=== PATIENT | male | born 1995 | race Caucasian/White ===

== ENCOUNTER 2020-03-27 12:47 | Emergency (ER) | payer MEDICAID ==
[~2020-03-27] VITALS: Ht 167.6 cm; Wt 65.0 kg
[2020-03-27] MEDS ORDERED: IBUPROFEN 600MG TABLET PO ONE (13:00)
[2020-03-27] MEDS ORDERED: IBUP-2029 MT (13:51)
[2020-03-27 14:29] VITALS: BP 131/75
== END 2020-03-27 14:30 | disposition home or self-care (01) ==
LOC: ER 12:47
DX: S49.82XA Other specified injuries of left shoulder and upper arm, initial encounter (principal); W01.0XXA Fall on same level from slipping, tripping and stumbling without subsequent striking against object, initial encounter; Y93.51 Activity, roller skating (inline) and skateboarding; Y92.89 Other specified places as the place of occurrence of the external cause
CPT/HCPCS: 73030; 99283; A4565

== ENCOUNTER 2021-04-28 15:16 | Emergency (ER) | payer MEDICAID ==
[~2021-04-28] VITALS: Ht 165.1 cm; Wt 58.0 kg
[~2021-04-28 15:16] MED LIST: IBUP-2029 MT
[2021-04-28] MEDS ORDERED: ONDANSETRON 4MG ODT PO ONE (16:15)
[2021-04-28] MEDS ORDERED: KETOROLAC 60MG/2ML VIAL IM ONE (16:15)
[2021-04-28] MEDS ORDERED: HYDROCODONE/ACETAMINOPHEN 5/325MG TABLET PO ONE (16:15)
[2021-04-28 17:03] VITALS: BP 115/60
[2021-04-28] MEDS ORDERED: IBUP-2029 MT (17:22)
== END 2021-04-28 18:31 | disposition home or self-care (01) ==
LOC: ER 15:16
DX: S70.12XA Contusion of left thigh, initial encounter (principal); X50.9XXA Other and unspecified overexertion or strenuous movements or postures, initial encounter; Y93.89 Activity, other specified; Y92.89 Other specified places as the place of occurrence of the external cause
CPT/HCPCS: 93971; 96372; 99284; J1885; Q0162

== ENCOUNTER 2022-04-05 19:27 | Emergency (ER) | payer MEDICAID, OTHER ==
[~2022-04-05] VITALS: Ht 165.1 cm; Wt 59.0 kg
[2022-04-05] MEDS ORDERED: ONDANSETRON HCL 4MG/2ML INJ IV STA (22:58)
[2022-04-05] MEDS ORDERED: KETOROLAC 30MG/ML VIAL IV STA (22:58)
[2022-04-05] MEDS ORDERED: SODIUM CHLORIDE 0.9% 1,000 ML IV ONE (23:00)
[2022-04-05 23:38] LABS: HEMOGLOBIN. 15.1 g/dL (14.0-18.0); MEAN CORPUSCULAR HEMOGLOBIN 33.9 pg (28.0-32.0); MEAN CORPUSCULAR VOLUME 96.4 fL (80.0-94.0); PLATELET 255 x1000/uL (130-400); RED BLOOD CELL COUNT 4.46 mill/uL (4.7-6.1); RED CELL DISTRIBUTION WIDTH 12.5 % (11.6-14.6)
[2022-04-05 23:45] LABS: CHLORIDE 104 mEq/L (98-107)
[2022-04-06 00:05] VITALS: BP 110/68
[2022-04-06 01:53] LABS: ATYPICAL LYMPHOCYTES 1; PLATELET ESTIMATE NORMAL
== END 2022-04-06 03:09 | disposition home or self-care (01) ==
LOC: ER 19:27
DX: R10.30 Lower abdominal pain, unspecified (principal); R11.2 Nausea with vomiting, unspecified; R00.0 Tachycardia, unspecified; R51.9 Headache, unspecified; D72.829 Elevated white blood cell count, unspecified
CPT/HCPCS: 36415; 74176; 80053; 83605; 83690; 85025; 93005; 96374; 96375; 99285; J1885; J2405; J7030